=== PATIENT | male | born 1985 | race Caucasian/White ===

== ENCOUNTER 2016-06-14 11:20 | Emergency (ER) | payer OTHER ==
[~2016-06-14] VITALS: Ht 182.9 cm; Wt 150.3 kg
[~2016-06-14 11:20] MED LIST: ALBUTEROL SULF8.5 GM IH; ALEVE220 MG PO; AMOXICILLIN500 M1 PO; AUGMENTIN875 MG PO; BACTRIM,SEPT1 TABLET PO; LEVOTHYROXINE50 MCG PO; MEDROL DOSEPAK4 MG PO; MOTRIN IB200 MG PO; MOTRIN800 MG PO; NORCO 5/3251 TABLET PO; PEN-VEE K,VEET500 MG PO; PREDNISONE10 M1 PO; PREDNISONE20 MG PO; PREDNISONE5 M1 PO; PROVENTIL,2.5 MG/3 M IH; PROVENTIL17 GM IH; TIZANIDINE HCL2 MG PO; ULTRAM50 MG PO; ZITHROMAX Z-PA250 MG PO
[2016-06-14] MEDS ORDERED: KEFLEX500 MG PO (13:27)
[2016-06-14 13:42] VITALS: BP 161/78
== END 2016-06-14 13:44 | disposition home or self-care (01) ==
LOC: EME 11:20
PROC: 0H94XZZ Drainage of Neck Skin, External Approach (ICD-10-PCS; principal; 2016-06-14)
DX: L02.13 Carbuncle of neck (principal); J06.9 Acute upper respiratory infection, unspecified; Z72.0 Tobacco use; Z71.6 Tobacco abuse counseling; J45.909 Unspecified asthma, uncomplicated
CPT/HCPCS: 99281; 99283

== ENCOUNTER 2016-06-16 21:42 | Emergency (ER) | payer OTHER ==
[~2016-06-16] VITALS: Ht 182.9 cm; Wt 149.4 kg
[~2016-06-16 21:42] MED LIST changes: +KEFLEX500 MG PO
[2016-06-16 22:34] VITALS: BP 131/92
== END 2016-06-16 22:36 | disposition home or self-care (01) ==
LOC: EME 21:42
DX: L72.3 Sebaceous cyst (principal); Z48.01 Encounter for change or removal of surgical wound dressing; F17.200 Nicotine dependence, unspecified, uncomplicated
CPT/HCPCS: 99281; 99283

== ENCOUNTER 2016-11-02 11:07 | Emergency (ER) | payer OTHER ==
[~2016-11-02] VITALS: Ht 182.9 cm; Wt 146.7 kg
[2016-11-02] MEDS ORDERED: NAPROSYN500 MG PO (12:18)
[2016-11-02 12:56] VITALS: BP 118/75
== END 2016-11-02 12:56 | disposition home or self-care (01) ==
LOC: EME 11:07
DX: S93.401A Sprain of unspecified ligament of right ankle, initial encounter (principal); X50.1XXA Overexertion from prolonged static or awkward postures, initial encounter; Y93.67 Activity, basketball; F17.200 Nicotine dependence, unspecified, uncomplicated
CPT/HCPCS: 73610; 73630; 99281; 99284

== ENCOUNTER 2017-03-09 08:27 | Emergency (ER) | payer OTHER ==
[~2017-03-09] VITALS: Ht 182.9 cm; Wt 149.8 kg
[~2017-03-09 08:27] MED LIST changes: +NAPROSYN500 MG PO
[2017-03-09] MEDS ORDERED: PREDNISONE20 MG PO (10:26)
[2017-03-09] MEDS ORDERED: VENTOLIN HFA18 GM IH (10:26)
[2017-03-09] MEDS ORDERED: TESSALON200 MG PO (10:33)
[2017-03-09 10:52] VITALS: BP 125/85
== END 2017-03-09 10:54 | disposition home or self-care (01) ==
LOC: EME 08:27
PROVIDERS: Nurse Practitioner Family
DX: J45.909 Unspecified asthma, uncomplicated (principal); Z87.891 Personal history of nicotine dependence
CPT/HCPCS: 71020; 87502; 93005; 94640; 99281; 99285; J7512